=== PATIENT | female | born 1960 | race African-American/Black ===

== ENCOUNTER 2025-03-08 13:30 | Emergency (ER) | payer SELFPAY ==
[~2025-03-08] VITALS: Ht 162.6 cm; Wt 77.0 kg
[2025-03-08 13:32] VITALS: TEMP 36.7
[2025-03-08] MEDS: MORPHINE SULFATE 4 MG/ML INJ (FOR IV/IM USE) IV ONE ×2 (14:37→20:27)
[2025-03-08] MEDS: ONDANSETRON HCL 4MG/2ML INJ IV ONE (14:38)
[2025-03-08] MEDS ORDERED: PROPOFOL 200MG/20ML VIAL IV ONE (17:45)
[2025-03-08] MEDS ORDERED: PROPOFOL 200MG/20ML VIAL IV NR (17:45)
[2025-03-08 20:25] VITALS: O2SAT 99
[2025-03-08] MEDS: PROPOFOL 200MG/20ML VIAL IV ONE (20:54)
[2025-03-08] MEDS ORDERED: HYDR-4001 MT (21:45)
[2025-03-08] MEDS ORDERED: IBUP-1523 MT (21:45)
[2025-03-08] MEDS: OXYCODONE HCL/ACETAMINOPHEN 5/325MG TABLET PO ONE (21:56)
[2025-03-08 22:30] VITALS: BP 157/85; PULSE 80; RESP 18; O2SAT 100
== END 2025-03-08 22:34 | disposition home or self-care (01) ==
LOC: ER 13:30
DX: S42.251A Displaced fracture of greater tuberosity of right humerus, initial encounter for closed fracture (principal); S43.004A Unspecified dislocation of right shoulder joint, initial encounter; I10 Essential (primary) hypertension; W01.0XXA Fall on same level from slipping, tripping and stumbling without subsequent striking against object, initial encounter; Y93.89 Activity, other specified; Y92.009 Unspecified place in unspecified non-institutional (private) residence as the place of occurrence of the external cause; Y99.8 Other external cause status
CPT/HCPCS: 99285; 23650; 96374; 73030; 99152; J2405; J2270; J2704